=== PATIENT | female | born 1995 | race Caucasian/White ===

== ENCOUNTER 2016-11-20 13:21 | Emergency (ER) | payer MEDICAID ==
[~2016-11-20] VITALS: Ht 144.8 cm; Wt 52.5 kg
[~2016-11-20 13:21] MED LIST: CEPH-368 PO; ETON68IM3 SC; ONDA4TAB7 PO; PREN1TAB60 PO; PROM25SU34 RC; RANI150C PO; SERT50TA5 PO
[2016-11-20] MEDS ORDERED: SODIUM CHLORIDE FLUSH 10ML SYR IVF ONE (14:30)
[2016-11-20] MEDS ORDERED: ONDANSETRON 2MG/ML, 2ML IVPush ONE (14:30)
[2016-11-20 14:35] LABS: PATH.CAST-FLAG NOT PRESENT; SPERM-FLAG NOT PRESENT; SRC-FLAG NOT PRESENT; XTAL-FLAG NOT PRESENT; YLC-FLAG NOT PRESENT
[2016-11-20 14:39] LABS: ASPARTATE AMINO TRANSFERASE 22 U/L (15-37); BLOOD UREA NITROGEN 14 mg/dL (7-18)
[2016-11-20] MEDS ORDERED: ONDANSETRON 2MG/ML, 2ML ONE (14:40)
[2016-11-20 16:32] VITALS: BP 104/56
== END 2016-11-20 17:18 | disposition home or self-care (01) ==
LOC: ED 16:49
DX: R10.32 Left lower quadrant pain (principal); R10.31 Right lower quadrant pain
CPT/HCPCS: 36415; 76700; 76830; 80053; 81001; 83690; 84703; 85025; 87086; 96374; 99285; J2405

== ENCOUNTER 2016-11-24 12:48 | Emergency (ER) | payer MEDICAID ==
[~2016-11-24] VITALS: Ht 147.3 cm; Wt 53.1 kg
[2016-11-24] MEDS ORDERED: ONDANSETRON 2MG/ML, 2ML ONE (13:26)
[2016-11-24] MEDS ORDERED: ACETAMINOPHEN 500 MG TABLET ONE (13:26)
[2016-11-24] MEDS ORDERED: ONDANSETRON 2MG/ML, 2ML IVPush ONE (13:30)
[2016-11-24] MEDS ORDERED: ACETAMINOPHEN 500 MG TABLET PO ONE (13:30)
[2016-11-24] MEDS ORDERED: SODIUM CHLORIDE FLUSH 10ML SYR IVF ONE (13:30)
[2016-11-24] MEDS ORDERED: SODIUM CHLORIDE 0.9% 1,000ML IVBOLUS ONE (13:30)
[2016-11-24 13:48] LABS: RAPID INFLUENZA A Negative (Negative); RAPID INFLUENZA B POSITIVE (Negative)
[2016-11-24] MEDS ORDERED: ALBUTEROL/IPRATROPIUM 2.5MG/0.5MG, 3 ML NPPB ONE (14:00)
[2016-11-24 14:06] LABS: BLOOD UREA NITROGEN 7 mg/dL (7-18)
[2016-11-24 14:47] LABS: PATH.CAST-FLAG NOT PRESENT; SPERM-FLAG NOT PRESENT; SRC-FLAG NOT PRESENT; XTAL-FLAG NOT PRESENT; YLC-FLAG NOT PRESENT
[2016-11-24] MEDS ORDERED: IBUPROFEN 200 MG TABLET PO ONE (15:00)
[2016-11-24] MEDS ORDERED: IBUPROFEN 200 MG TABLET ONE (15:22)
[2016-11-24] MEDS ORDERED: ALBUTEROL/IPRATROPIUM 2.5MG/0.5MG, 3 ML ONE (15:31)
[2016-11-24 15:55] VITALS: BP 123/74
== END 2016-11-24 16:19 | disposition home or self-care (01) ==
LOC: ED 16:04
DX: J02.0 Streptococcal pharyngitis (principal); J09.X2 Influenza due to identified novel influenza A virus with other respiratory manifestations; K21.9 Gastro-esophageal reflux disease without esophagitis
CPT/HCPCS: 36415; 71010; 80048; 81001; 82040; 83605; 85025; 87040; 87081; 87086; 87400; 87880; 94640; 96361; 96374; 99285; J2405; J7030; J7620

== ENCOUNTER 2017-03-12 21:18 | Emergency (ER) | payer MEDICAID ==
[~2017-03-12] VITALS: Ht 147.3 cm; Wt 56.0 kg
[2017-03-12] MEDS ORDERED: FAMOTIDINE 20 MG/2 ML IVP ONE (21:30)
[2017-03-12] MEDS ORDERED: MAALOX/HYOSCYAMINE/LIDOCAINE 45 ML BTL PO ONE (21:30)
[2017-03-12] MEDS ORDERED: ONDANSETRON 2MG/ML, 2ML IVPush ONE (21:30)
[2017-03-12] MEDS ORDERED: ZIPRASIDONE 20 MG INJ IM ONE (21:30)
[2017-03-12] MEDS ORDERED: SODIUM CHLORIDE 0.9% 1,000ML IVBOLUS ONE (21:30)
[2017-03-12] MEDS ORDERED: PLEASE ENTER HEIGHT AND WEIGHT MC SCH (21:30)
[2017-03-12] MEDS ORDERED: SODIUM CHLORIDE FLUSH 10ML SYR IVF ONE (21:30)
[2017-03-12 21:35] LABS: HEMATOCRIT 40.4 % (34.6-47.8); HEMOGLOBIN 13.6 g/dL (11.7-16.4); WHITE BLOOD COUNT 7.5 x10^3/uL (3.4-10)
[2017-03-12 21:45] LABS: BLOOD UREA NITROGEN 9 mg/dL (7-18)
[2017-03-12 21:58] VITALS: BP 124/77
== END 2017-03-12 22:23 | disposition home or self-care (01) ==
LOC: ED 22:17
DX: R11.2 Nausea with vomiting, unspecified (principal); R19.7 Diarrhea, unspecified; J45.909 Unspecified asthma, uncomplicated; K21.9 Gastro-esophageal reflux disease without esophagitis; F12.10 Cannabis abuse, uncomplicated
CPT/HCPCS: 36415; 80048; 85025; 93005; 96360; 99285; J7030

== ENCOUNTER 2017-08-15 12:09 | Emergency (ER) | payer MEDICAID ==
[~2017-08-15] VITALS: Ht 147.3 cm; Wt 50.5 kg
[2017-08-15] MEDS ORDERED: SODIUM CHLORIDE 0.9% 1,000 ML IV ONE (13:05)
[2017-08-15] MEDS ORDERED: RANI-276 PO (13:23)
[2017-08-15] MEDS ORDERED: CHOL100012 PO (13:23)
[2017-08-15] MEDS ORDERED: ALBU0.63 NEB (13:24)
[2017-08-15 13:30] LABS: BASOPHILS # (AUTO) 0.04 x10^3/uL (0-0.1); BASOPHILS % (AUTO) 1 % (0-1); EOSINOPHILS # (AUTO) 0.46 x10^3/uL (0-0.4); EOSINOPHILS % (AUTO) 7 % (1-7); LYMPHOCYTES # (AUTO) 0.97 x10^3/uL (1-3.4); LYMPHOCYTES % (AUTO) 15 % (22-44); MD NO; MEAN CORPUSCULAR HEMOGLOBIN 28.7 pg (27.0-34.8); MEAN CORPUSCULAR HGB CONC 33.9 g/dL (32.4-35.8); MEAN CORPUSCULAR VOLUME 84.7 fL (80-100); MEAN PLATELET VOLUME 8.1 fL (7.4-10.4); MONOCYTES # (AUTO) 0.69 x10^3/uL (0.2-0.8); MONOCYTES % (AUTO) 11 % (2-9); NEUTROPHILS # (AUTO) 4.38 x10^3/uL (1.8-6.8); NEUTROPHILS % (AUTO) 67 % (42-75); PLATELET COUNT 275 x10^3/uL (130-400); RED BLOOD COUNT 4.98 x10^6/uL (3.82-5.3); RED CELL DISTRIBUTION WIDTH 13.1 % (9.6-15.2)
[2017-08-15] MEDS ORDERED: ONDANSETRON 2MG/ML, 2ML IVPush ONE (13:30)
[2017-08-15] MEDS ORDERED: FAMOTIDINE 20 MG/2 ML IVP ONE (13:30)
[2017-08-15] MEDS ORDERED: SODIUM CHLORIDE 0.9% 1,000ML IVBOLUS ONE (13:30)
[2017-08-15] MEDS ORDERED: FAMOTIDINE 20 MG/2 ML ONE (13:34)
[2017-08-15] MEDS ORDERED: ONDANSETRON 2MG/ML, 2ML ONE (13:34)
[2017-08-15 13:37] LABS: RAPID INFLUENZA A Negative (Negative); RAPID INFLUENZA B Negative (Negative)
[2017-08-15 13:42] LABS: ALANINE AMINOTRANSFERASE 14 U/L (12-78); ALBUMIN 3.8 g/dL (3.4-5.0); ANION GAP 9 mmol/L (5-15); CHLORIDE 105 mmol/L (98-107); CREATININE 0.77 mg/dL (0.55-1.02)
[2017-08-15 13:47] LABS: ALKALINE PHOSPHATASE 62 U/L (45-117); BILIRUBIN,TOTAL 0.5 mg/dL (0.2-1.0); TOTAL PROTEIN 7.8 g/dL (6.4-8.2)
[2017-08-15 14:44] VITALS: BP 115/66
== END 2017-08-15 14:48 | disposition home or self-care (01) ==
LOC: ED 14:09
DX: J20.9 Acute bronchitis, unspecified (principal); K21.9 Gastro-esophageal reflux disease without esophagitis; J45.909 Unspecified asthma, uncomplicated; G62.9 Polyneuropathy, unspecified
CPT/HCPCS: 36415; 71046; 80053; 83690; 84703; 85025; 87081; 87400; 87880; 93005; 96361; 96374; 96375; 99285; J2405; J7030; S0028

== ENCOUNTER 2017-09-11 20:34 | Emergency (ER) | payer MEDICAID ==
[~2017-09-11] VITALS: Ht 147.3 cm; Wt 52.0 kg
[~2017-09-11 20:34] MED LIST changes: +ALBU0.63 NEB; +CHOL100012 PO; +RANI-276 PO
[2017-09-11 20:59] LABS: BASOPHILS # (AUTO) 0.01 x10^3/uL (0-0.1); BASOPHILS % (AUTO) 0 % (0-1); EOSINOPHILS # (AUTO) 0.09 x10^3/uL (0-0.4); EOSINOPHILS % (AUTO) 1 % (1-7); LYMPHOCYTES # (AUTO) 2.29 x10^3/uL (1-3.4); LYMPHOCYTES % (AUTO) 31 % (22-44); MD NO; MEAN CORPUSCULAR HEMOGLOBIN 28.8 pg (27.0-34.8); MEAN CORPUSCULAR HGB CONC 33.9 g/dL (32.4-35.8); MEAN PLATELET VOLUME 7.7 fL (7.4-10.4); MONOCYTES # (AUTO) 0.43 x10^3/uL (0.2-0.8); MONOCYTES % (AUTO) 6 % (2-9); NEUTROPHILS # (AUTO) 4.53 x10^3/uL (1.8-6.8); NEUTROPHILS % (AUTO) 62 % (42-75); PLATELET COUNT 362 x10^3/uL (130-400); RED BLOOD COUNT 4.89 x10^6/uL (3.82-5.3); RED CELL DISTRIBUTION WIDTH 13.8 % (9.6-15.2)
[2017-09-11 21:11] LABS: ALANINE AMINOTRANSFERASE 14 U/L (12-78); ALBUMIN 3.9 g/dL (3.4-5.0); ANION GAP 8 mmol/L (5-15); CALCIUM 8.9 mg/dL (8.5-10.1); CHLORIDE 108 mmol/L (98-107)
[2017-09-11 21:16] LABS: ALKALINE PHOSPHATASE 57 U/L (45-117); BILIRUBIN,TOTAL 0.4 mg/dL (0.2-1.0); CREATININE 0.91 mg/dL (0.55-1.02); TOTAL PROTEIN 7.9 g/dL (6.4-8.2)
[2017-09-11 21:17] LABS: ACETAMINOPHEN < 2 mcg/mL (10-30); SALICYLATE LEVEL < 1.7 mg/dL (2.8-20.0)
[2017-09-11 21:32] LABS: AMPHETAMINE SCREEN, URINE Negative (Negative); BARBITURATE SCREEN, URINE Negative (Negative); BENZODIAZEPINE SCREEN, URINE Negative (Negative); CANNABINOID SCREEN, URINE Negative (Negative); COCAINE SCREEN, URINE Negative (Negative); METHADONE SCREEN, URINE Negative (Negative); OPIATE SCREEN, URINE Negative (Negative)
[2017-09-11] MEDS ORDERED: ONDANSETRON 2MG/ML, 2ML ONE (21:54)
[2017-09-11] MEDS ORDERED: ONDANSETRON 2MG/ML, 2ML IVPush ONE (22:00)
[2017-09-12 00:23] VITALS: BP 107/74
== END 2017-09-12 04:01 | disposition home or self-care (01) ==
LOC: ED 21:15
DX: R45.851 Suicidal ideations (principal); F41.9 Anxiety disorder, unspecified; F32.9 Major depressive disorder, single episode, unspecified; K21.9 Gastro-esophageal reflux disease without esophagitis; Z88.0 Allergy status to penicillin; Z79.899 Other long term (current) drug therapy
CPT/HCPCS: 36415; 80053; 80307; 80329; 84703; 85025; 93005; 96374; 99285; J2405; G0480

== ENCOUNTER 2020-11-14 19:06 | Emergency (ER) | payer MEDICAID ==
[~2020-11-14] VITALS: Ht 149.9 cm; Wt 54.6 kg
[~2020-11-14 19:06] MED LIST changes: -RANI-276 PO; +RANI-460 PO; +SERT50TA28 PO; -SERT50TA5 PO
[2020-11-14 19:55] LABS: BASOPHILS % (AUTO) 1 % (0-1); EOSINOPHILS % (AUTO) 1 % (1-7); LYMPHOCYTES % (AUTO) 23 % (22-44); MD NO; MEAN CORPUSCULAR HEMOGLOBIN 30.6 pg (27.0-34.8); MEAN CORPUSCULAR HGB CONC 34.7 g/dL (32.4-35.8); MEAN PLATELET VOLUME 8.3 fL (7.4-10.4); MONOCYTES % (AUTO) 6 % (2-9); NEUTROPHILS % (AUTO) 70 % (42-75); PLATELET COUNT 307 x10^3/uL (130-400); RED BLOOD COUNT 3.99 x10^6/uL (3.82-5.3); RED CELL DISTRIBUTION WIDTH 13.4 % (9.6-15.2)
[2020-11-14 20:08] LABS: ANION GAP 5 mmol/L (5-15); CALCIUM 8.7 mg/dL (8.5-10.1); CHLORIDE 107 mmol/L (98-107); CREATININE 0.52 mg/dL (0.55-1.02)
--- NOTE | 2020-11-14 20:43 | NUR ---
materials tech: pt from lobby to room 26
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
--- NOTE | 2020-11-14 21:05 | NUR ---
PT AMBULATED TO BATHROOM TO OBTAIN UA SAMPLE,.
[2020-11-14 21:50] LABS: MICROSCOPIC INDICATED
--- NOTE | 2020-11-14 22:20 | NUR ---
PT IS RESTING IN BED, VSS, PT IN NAD.
--- NOTE | 2020-11-14 23:00 | NUR ---
PT GIVEN CERAL, MILK, AND PUDDING. WAS REQUESTING SNACKS. PT STATING HER BS WAS FEELING LOW. PT IS NOT DIABETIC.
[2020-11-14 23:07] VITALS: BP 103/58
== END 2020-11-14 23:15 | disposition home or self-care (01) ==
LOC: ED 21:49
DX: O26.892 Other specified pregnancy related conditions, second trimester (principal); R10.33 Periumbilical pain; Z3A.17 17 weeks gestation of pregnancy
CPT/HCPCS: 36415; 76815; 80048; 81001; 82040; 84702; 85025; 86901; 87086; 99284

== ENCOUNTER 2020-12-09 20:24 | Outpatient (CLI) | payer MEDICAID ==
[~2020-12-09] VITALS: Ht 147.3 cm; Wt 55.0 kg
[2020-12-09 21:56] LABS: MICROSCOPIC INDICATED
[2020-12-09 22:01] LABS: AMPHETAMINE SCREEN, URINE Negative (Negative); BARBITURATE SCREEN, URINE Negative (Negative); BENZODIAZEPINE SCREEN, URINE Negative (Negative); CANNABINOID SCREEN, URINE Negative (Negative); COCAINE SCREEN, URINE Negative (Negative); METHADONE SCREEN, URINE Negative (Negative); OPIATE SCREEN, URINE Negative (Negative)
[2020-12-09 22:03] VITALS: BP 110/64
== END 2020-12-09 23:25 | disposition home or self-care (01) ==
LOC: CLISVCS 20:24 → LDOP 23:25
PROVIDERS: ATTEND Obstetrics & Gynecology
DX: O26.892 Other specified pregnancy related conditions, second trimester (principal); R25.2 Cramp and spasm; Z3A.21 21 weeks gestation of pregnancy
CPT/HCPCS: 80307; 81001; 87086; 87491; 87591; 99211; G0463

== ENCOUNTER 2020-12-14 00:40 | Outpatient (CLI) | payer MEDICAID ==
[~2020-12-14] VITALS: Ht 147.3 cm; Wt 55.0 kg
[2020-12-14 01:11] LABS: MICROSCOPIC INDICATED
[2020-12-14 01:33] VITALS: BP 106/63
== END 2020-12-14 02:05 | disposition home or self-care (01) ==
LOC: LDOP 00:40
PROVIDERS: ATTEND Obstetrics & Gynecology
DX: O42.912 Preterm premature rupture of membranes, unspecified as to length of time between rupture and onset of labor, second trimester (principal); R10.9 Unspecified abdominal pain; Z3A.22 22 weeks gestation of pregnancy
CPT/HCPCS: 81001; 84112; 99211; G0463

== ENCOUNTER 2020-12-21 17:37 | Outpatient (CLI) | payer MEDICAID ==
[~2020-12-21] VITALS: Ht 147.3 cm; Wt 55.4 kg
[2020-12-21 17:43] VITALS: BP 111/58
== END 2020-12-21 18:10 | disposition home or self-care (01) ==
LOC: LDOP 17:37
PROVIDERS: ATTEND Obstetrics & Gynecology
DX: O36.8120 Decreased fetal movements, second trimester, not applicable or unspecified (principal); Z3A.23 23 weeks gestation of pregnancy
CPT/HCPCS: 99211; G0463

== ENCOUNTER 2021-01-17 22:17 | Outpatient (CLI) | payer MEDICAID ==
[~2021-01-17] VITALS: Ht 147.3 cm; Wt 57.7 kg
[2021-01-17 22:49] LABS: MICROSCOPIC INDICATED
[2021-01-17 23:07] LABS: CLUE CELLS NONE SEEN (NONE SEEN); WET PREP WBCS FEW (FEW)
== END 2021-01-18 00:25 | disposition home or self-care (01) ==
LOC: LDOP 22:17
PROVIDERS: ATTEND Obstetrics & Gynecology
DX: O42.912 Preterm premature rupture of membranes, unspecified as to length of time between rupture and onset of labor, second trimester (principal); Z3A.26 26 weeks gestation of pregnancy
CPT/HCPCS: 59025; 81001; 87086; 87210; 87808; 89060; Q0114

== ENCOUNTER 2021-01-20 22:09 | Outpatient (CLI) | payer MEDICAID ==
[2021-01-20 22:25] VITALS: BP 104/57
== END 2021-01-20 23:53 | disposition home or self-care (01) ==
LOC: LDOP 22:09
PROVIDERS: ATTEND Obstetrics & Gynecology
DX: O62.9 Abnormality of forces of labor, unspecified (principal); Z3A.27 27 weeks gestation of pregnancy
CPT/HCPCS: 59025; 99211; G0463

== ENCOUNTER 2021-01-31 18:55 | Outpatient (CLI) | payer MEDICAID ==
[~2021-01-31] VITALS: Ht 147.3 cm; Wt 61.4 kg
[2021-01-31 19:42] VITALS: BP 102/62
[2021-01-31 22:17] LABS: MICROSCOPIC AUTO
[2021-01-31 22:33] LABS: AMPHETAMINE SCREEN, URINE Negative (Negative); BARBITURATE SCREEN, URINE Negative (Negative); BENZODIAZEPINE SCREEN, URINE Negative (Negative); CANNABINOID SCREEN, URINE Negative (Negative); COCAINE SCREEN, URINE Negative (Negative); METHADONE SCREEN, URINE Negative (Negative); OPIATE SCREEN, URINE Negative (Negative)
[2021-01-31] MEDS ORDERED: TERBUTALINE 1 MG/ML, 1ML ONE (23:09)
[2021-01-31] MEDS ORDERED: CEFAZOLIN PMX 1GM/50ML 50 ML IV ONE (23:30)
[2021-01-31] MEDS ORDERED: TERBUTALINE 1 MG/ML, 1ML IV ONE (23:30)
[2021-01-31] MEDS ORDERED: NITROFURANTOIN (MACROBID) 100 MG CAPSULE PO ONE (23:30)
== END 2021-01-31 23:47 | disposition home or self-care (01) ==
LOC: LDOP 18:55
PROVIDERS: ATTEND Obstetrics & Gynecology
DX: O26.893 Other specified pregnancy related conditions, third trimester (principal); R10.30 Lower abdominal pain, unspecified; Z3A.28 28 weeks gestation of pregnancy
CPT/HCPCS: 59025; 80307; 81001; 85460; 86850; 86900; 87086; 96360

== ENCOUNTER 2021-03-06 20:44 | Outpatient (CLI) | payer MEDICAID ==
[2021-03-06 22:06] LABS: MICROSCOPIC INDICATED
== END 2021-03-06 22:37 | disposition home or self-care (01) ==
LOC: LDOP 20:44
PROVIDERS: ATTEND Obstetrics & Gynecology
DX: O26.893 Other specified pregnancy related conditions, third trimester (principal); E86.0 Dehydration; Z3A.33 33 weeks gestation of pregnancy
CPT/HCPCS: 59025; 81001

== ENCOUNTER 2021-03-12 22:10 | Outpatient (CLI) | payer MEDICAID ==
[2021-03-12 22:16] VITALS: BP 113/66
[2021-03-12 22:55] LABS: MICROSCOPIC AUTO
[2021-03-12] MEDS ORDERED: LACTATED RINGERS 1,000 ML IV SCH (23:00)
== END 2021-03-12 23:58 | disposition home or self-care (01) ==
LOC: LDOP 22:10
PROVIDERS: ATTEND Obstetrics & Gynecology
DX: O62.9 Abnormality of forces of labor, unspecified (principal); O99.283 Endocrine, nutritional and metabolic diseases complicating pregnancy, third trimester; E86.0 Dehydration; R10.9 Unspecified abdominal pain; Z3A.34 34 weeks gestation of pregnancy
CPT/HCPCS: 59025; 81001; 87086; 96360; J7120

== ENCOUNTER 2021-03-26 18:23 | Outpatient (CLI) | payer MEDICAID ==
[~2021-03-26] VITALS: Ht 147.3 cm; Wt 70.0 kg
[2021-03-26 19:11] LABS: MICROSCOPIC INDICATED
== END 2021-03-26 19:44 | disposition home or self-care (01) ==
LOC: LDOP 18:23
PROVIDERS: ATTEND Obstetrics & Gynecology
DX: O26.893 Other specified pregnancy related conditions, third trimester (principal); M79.89 Other specified soft tissue disorders; Z3A.36 36 weeks gestation of pregnancy
CPT/HCPCS: 59025; 81001; 87086

== ENCOUNTER 2021-03-26 23:38 | Inpatient (IN) | payer MEDICAID ==
[~2021-03-26] VITALS: Ht 147.3 cm; Wt 68.2 kg
[2021-03-27 00:14] LABS: FERNING TEST FERNING PRESENT (NEGATIVE)
[2021-03-27] MEDS ORDERED: METOCLOPRAMIDE 5 MG/ML, 2ML IV ONE (00:30)
[2021-03-27] MEDS ORDERED: LACTATED RINGERS 1,000 ML IVBOLUS ONE (00:30)
[2021-03-27] MEDS ORDERED: SODIUM CITRATE/CITRIC ACID 30 ML UDC PO ONE (00:30)
[2021-03-27] MEDS ORDERED: NEWBORN KIT ONE (00:51)
[2021-03-27] MEDS ORDERED: OXYTOCIN 30U/ 0.9% NaCL 500ML 500 ML ONE (00:51)
[2021-03-27] MEDS ORDERED: SODIUM CITRATE/CITRIC ACID 15 ML UDC ONE (00:52)
[2021-03-27] MEDS ORDERED: CEFAZOLIN 1,000 MG ONE (00:56)
[2021-03-27] MEDS ORDERED: EPHEDRINE 50 MG/ML, 1ML ONE (00:56)
[2021-03-27] MEDS ORDERED: OXYTOCIN 10 UNITS/ML, 1ML ONE (00:56)
[2021-03-27] MEDS ORDERED: EPINEPHRINE 1 MG/ML, 1ML ONE (00:56)
[2021-03-27] MEDS ORDERED: FENTANYL PF 100 MCG/2ML ONE (00:56)
[2021-03-27 01:14] VITALS: BP 117/78
[2021-03-27 01:25] LABS: BASOPHILS % (AUTO) 1 % (0-1); EOSINOPHILS % (AUTO) 1 % (1-7); LYMPHOCYTES % (AUTO) 18 % (22-44); MEAN CORPUSCULAR HEMOGLOBIN 27.8 pg (27.0-34.8); MEAN CORPUSCULAR HGB CONC 34.1 g/dL (32.4-35.8); MEAN PLATELET VOLUME 8.4 fL (7.4-10.4); MONOCYTES % (AUTO) 8 % (2-9); NEUTROPHILS % (AUTO) 73 % (42-75); PLATELET COUNT 277 x10^3/uL (130-400); RED BLOOD COUNT 3.61 x10^6/uL (3.82-5.3); RED CELL DISTRIBUTION WIDTH 14.5 % (9.6-15.2)
[2021-03-27] MEDS ORDERED: KETOROLAC 30 MG/1 ML ONE (03:13)
[2021-03-27] MEDS ORDERED: ACETAMINOPHEN 325 MG TABLET PO PRN (03:30)
[2021-03-27] MEDS ORDERED: MISOPROSTOL 200 MCG TABLET PR PRN (03:30)
[2021-03-27] MEDS ORDERED: METHYLERGONOVINE 0.2 MG/ML IM PRN (03:30)
[2021-03-27] MEDS ORDERED: SIMETHICONE 80 MG CHEW TAB PO PRN (03:30)
[2021-03-27] MEDS: LACTATED RINGERS 1,000 ML IV SCH ×6 (03:30→23:30)
[2021-03-27] MEDS: OXYTOCIN 30U/ 0.9% NaCL 500ML 500 ML IV SCH ×3 (03:30→23:30)
[2021-03-27] MEDS ORDERED: METOCLOPRAMIDE 5 MG/ML, 2ML IV PRN (03:30)
[2021-03-27 04:20] LABS: AMPHETAMINE SCREEN, URINE Negative (Negative); BARBITURATE SCREEN, URINE Negative (Negative); BENZODIAZEPINE SCREEN, URINE Negative (Negative); CANNABINOID SCREEN, URINE Negative (Negative); COCAINE SCREEN, URINE Negative (Negative); METHADONE SCREEN, URINE Negative (Negative); OPIATE SCREEN, URINE Negative (Negative)
[2021-03-27 05:40] VITALS: BP 96/57
[2021-03-27 06:40] LABS: MICROSCOPIC NOT IND
[2021-03-27 07:15] VITALS: BP 96/56
[2021-03-27] MEDS: PRENATAL VIT/IRON/FA 1 EACH TABLET PO SCH (09:00)
[2021-03-27] MEDS: KETOROLAC 30 MG/1 ML IVPush SCH ×3 (09:12→21:16)
[2021-03-27 10:45] LABS: BASOPHILS % (AUTO) 0 % (0-1); EOSINOPHILS % (AUTO) 0 % (1-7); LYMPHOCYTES % (AUTO) 8 % (22-44); MEAN CORPUSCULAR HEMOGLOBIN 27.1 pg (27.0-34.8); MEAN CORPUSCULAR HGB CONC 33.5 g/dL (32.4-35.8); MEAN PLATELET VOLUME 8.7 fL (7.4-10.4); MONOCYTES % (AUTO) 5 % (2-9); NEUTROPHILS % (AUTO) 87 % (42-75); PLATELET COUNT 242 x10^3/uL (130-400); RED BLOOD COUNT 3.22 x10^6/uL (3.82-5.3); RED CELL DISTRIBUTION WIDTH 14.2 % (9.6-15.2)
[2021-03-27 12:15] VITALS: BP 99/65
[2021-03-27 17:00] VITALS: BP 103/71
[2021-03-27 19:00] VITALS: BP 106/69
[2021-03-27] MEDS: DOCUSATE 100 MG CAPSULE PO PRN (19:10)
[2021-03-28] VITALS: BP 105/70
[2021-03-28] MEDS: LACTATED RINGERS 1,000 ML IV SCH ×3 (02:16→11:30)
[2021-03-28] MEDS: OXYTOCIN 30U/ 0.9% NaCL 500ML 500 ML IV SCH (02:17)
[2021-03-28] MEDS: KETOROLAC 30 MG/1 ML IVPush SCH ×3 (03:21→09:30)
[2021-03-28 03:50] VITALS: BP 107/76
[2021-03-28 08:07] VITALS: BP 110/74
[2021-03-28] MEDS: DOCUSATE 100 MG CAPSULE PO PRN ×2 (08:50→22:29)
[2021-03-28] MEDS: IBUPROFEN 600 MG TABLET PO PRN ×3 (08:56→22:29)
[2021-03-28] MEDS: PRENATAL VIT/IRON/FA 1 EACH TABLET PO SCH (09:00)
[2021-03-28 12:40] VITALS: BP 104/64
[2021-03-28 19:32] VITALS: BP 111/75
[2021-03-29] MEDS: PRENATAL VIT/IRON/FA 1 EACH TABLET PO SCH (09:00)
[2021-03-29 09:15] VITALS: BP 103/69
[2021-03-29] MEDS: DOCUSATE 100 MG CAPSULE PO PRN (09:18)
[2021-03-29] MEDS: IBUPROFEN 600 MG TABLET PO PRN ×2 (09:18→16:29)
[2021-03-29] MEDS ORDERED: CALCIUM CARBONATE 500 MG TAB.CHEW PO PRN (13:00)
[2021-03-29 20:30] VITALS: BP 110/75
[2021-03-30] MEDS: IBUPROFEN 600 MG TABLET PO PRN ×3 (00:35→19:26)
[2021-03-30 08:00] VITALS: BP 103/63
[2021-03-30] MEDS: DOCUSATE 100 MG CAPSULE PO PRN (08:14)
[2021-03-30] MEDS: PRENATAL VIT/IRON/FA 1 EACH TABLET PO SCH (08:15)
[2021-03-30 20:00] VITALS: BP 106/72
[2021-03-31 08:00] VITALS: BP 109/77
[2021-03-31] MEDS: PRENATAL VIT/IRON/FA 1 EACH TABLET PO SCH (09:00)
[2021-03-31] MEDS: DOCUSATE 100 MG CAPSULE PO PRN (09:20)
[2021-03-31] MEDS: IBUPROFEN 600 MG TABLET PO PRN (09:21)
[2021-03-31] MEDS ORDERED: DOCU-131 PO (12:52)
[2021-03-31] MEDS ORDERED: FERR325T5 PO (12:52)
[2021-03-31] MEDS ORDERED: IBUP-1222 PO (12:52)
== END 2021-03-31 13:17 | disposition home or self-care (01) | DRG 788 ==
LOC: LDOP 23:38 → LDIP 03-27 00:26 → 2NW 03-27 05:27
PROVIDERS: ADMIT Obstetrics & Gynecology; ATTEND Obstetrics & Gynecology
PROC: 10D00Z1 Extraction of Products of Conception, Low, Open Approach (ICD-10-PCS; principal; 2021-03-27)
DX: O42.913 Preterm premature rupture of membranes, unspecified as to length of time between rupture and onset of labor, third trimester (principal); Z20.822 Contact with and (suspected) exposure to COVID-19; O99.344 Other mental disorders complicating childbirth; O99.02 Anemia complicating childbirth; D64.9 Anemia, unspecified; F41.9 Anxiety disorder, unspecified; O90.81 Anemia of the puerperium; Z37.0 Single live birth; O43.123 Velamentous insertion of umbilical cord, third trimester; Z88.0 Allergy status to penicillin; Z88.8 Allergy status to other drugs, medicaments and biological substances; Z3A.36 36 weeks gestation of pregnancy
CPT/HCPCS: 36415; 80307; 81003; 84112; 85025; 86592; 86850; 86900; 87086; 87635; 89060; G0378; J0171; J0690; J1885; J3010; J2590; J2765; Q0114